=== PATIENT | female | born 1995 | race Two or more races ===

== ENCOUNTER 2022-10-09 17:49 | Emergency (ER) | payer OTHER ==
[~2022-10-09] VITALS: Ht 162.6 cm; Wt 54.4 kg
[2022-10-09] MEDS ORDERED: PRENA1 TRUE CO1 EACH (18:26)
[2022-10-09] MEDS ORDERED: ZOFRAN8 MG (18:27)
== END 2022-10-09 22:29 | disposition home or self-care (01) ==
LOC: ER 17:49
DX: B34.9 Viral infection, unspecified (principal); Z33.1 Pregnant state, incidental; Z20.822 Contact with and (suspected) exposure to COVID-19

== ENCOUNTER 2023-02-13 06:48 | Outpatient (CLI) | payer OTHER ==
[~2023-02-13 06:48] MED LIST: PRENA1 TRUE CO1 EACH; ZOFRAN8 MG
[2023-02-13] MEDS ORDERED: IRON325 MG PO (06:53)
== END 2023-02-13 18:10 | disposition home or self-care (01) ==
LOC: OBS/DEL 06:48
PROVIDERS: ATTEND Specialist
DX: O47.1 False labor at or after 37 completed weeks of gestation (principal); R82.71 Bacteriuria; Z3A.38 38 weeks gestation of pregnancy; Z20.822 Contact with and (suspected) exposure to COVID-19

== ENCOUNTER 2023-02-15 11:22 | Inpatient (IN) | payer OTHER ==
[~2023-02-15] VITALS: Ht 162.6 cm; Wt 66.2 kg
[~2023-02-15 11:22] MED LIST changes: +IRON325 MG PO
== END 2023-02-18 10:42 | disposition home or self-care (01) | DRG 807 ==
LOC: OBS/DEL 11:22 → LDR 17:08 → OB/GYN 17:08
PROVIDERS: ADMIT Specialist; ATTEND Specialist
PROC: 3E0P7VZ Introduction of Hormone into Female Reproductive, Via Natural or Artificial Opening (ICD-10-PCS; 2023-02-15)
PROC: 4A1HXCZ Monitoring of Products of Conception, Cardiac Rate, External Approach (ICD-10-PCS; 2023-02-15)
PROC: 10E0XZZ Delivery of Products of Conception, External Approach (ICD-10-PCS; principal; 2023-02-16)
PROC: 0W8NXZZ Division of Female Perineum, External Approach (ICD-10-PCS; 2023-02-16)
PROC: 3E033VJ Introduction of Other Hormone into Peripheral Vein, Percutaneous Approach (ICD-10-PCS; 2023-02-16)
DX: O80 Encounter for full-term uncomplicated delivery (principal); Z37.0 Single live birth; Z3A.39 39 weeks gestation of pregnancy; Z20.822 Contact with and (suspected) exposure to COVID-19